=== PATIENT | female | born 1990 | race Caucasian/White ===

== ENCOUNTER 2018-09-05 01:00 | Inpatient (IN) | payer SELFPAY ==
[~2018-09-05] VITALS: Ht 160 cm; Wt 76.9 kg
[2018-09-05] MEDS ORDERED: LIDOCAINE 1% (MPF) 30 ML INJ INJ PRN (18:00)
[2018-09-05] MEDS ORDERED: MISOPROSTOL 200 MCG TAB PR PRN (18:00)
[2018-09-05] MEDS ORDERED: OXYTOCIN 30 UNITS/LR 500 ML IV PRN (18:00)
[2018-09-05] MEDS ORDERED: METHYLERGONOVINE 0.2 MG INJ IM PRN (18:00)
[2018-09-05] MEDS ORDERED: CARBOPROST 250 MCG INJ IM PRN (18:00)
[2018-09-05] MEDS ORDERED: OXYTOCIN 30 UNITS/LR 500 ML IV SCH ×2 (18:00)
[2018-09-05] MEDS ORDERED: IBUPROFEN 600 MG TAB PO PRN (18:00)
[2018-09-05 18:02] VITALS: Ht 160 cm; Wt 76.9 kg
--- NOTE | 2018-09-05 20:45 | HP ---
Date/Time of Note Date/Time of Note DATE: 09/05/18 TIME: 20:43 OB - History Hx of Present Free Text/Dictation 09/05/2018 Estimated Due Date: Sep 12, 2018 : 2 Para: 1 Spontaneous : 0 Therapeutic : 0 Care: Good Care Obstetrical Complications: None Medical Complications: None Other Concerns: 27 years old with IUP at 39 weeks desires to proceed with labor induction due to living far from [facility]. Requested delivery at . Antepartum course was non complicated. GBS negative Final LEE: 09/12/2018 History of post date in first , Difficult delivery, 26 hours labor Desires to be induced at 39 weeks. Lives now very far from [place]. Declined all genetic testing. Does not consider termination in any cases. Past Family/Social History * Past Medical, Surgical, Family and Obstetric Histories reviewed from chart. Blood Type: A+ Rubella: immune RPR/VDRL: Negative GBS Status: Negative HBsAG: Negative OB Admission Exam Physical Exam HEENT: WNL Abdomen: WNL Cervical Dilatation: Fingertip Effacement: 25% Station: -2 Membranes: Intact Heart Rate: 130's Accelerations: Accelerations Present Varibility: Moderate Contractions on Admission: 6-10 Minutes Apart Intensity: Mild Last 72 hours Lab Results PROCEDURE: US OB. CLINICAL INDICATION: Labor induction TECHNIQUE: Multiple sonographic images of the pelvis and gravid uterus were obtained. The images were reviewed on a PACS workstation. COMPARISON: US PELVIS 08/21/2018 FINDINGS: Gestation: Single intrauterine gestation. Cardiac activity: 148 bpm. Presentation: Vertex. Placenta: Location: Anterior. Appearance: No previa or abruption. Measurements: BPD = 9.43 cm, 38 weeks 3 days HC = 34.18 cm, 39 weeks 3 days AC = 35.69 cm, 39 weeks 4 days FL = 7.67 cm, 39 weeks 2 days Gestational age: AUA estimated gestational age: 39 weeks 1 day LMP estimated gestational age: 39 weeks 0 days AUA estimated date of delivery: 09/11/2018 EFW = 3758 g, 77 %ile based on LMP age. IMPRESSION: 1. Single live intrauterine gestation of 39 weeks 1 day by ultrasound criteria. 2. Estimated date of delivery of 09/11/2018. OB Assessment/Plan Other Assessment: IUP at 39 weeks Desires labor induction EFW: 77 % Unfavourabnle cervix, Discussed about all the modes of induction. Desires Cytotec. ANAYA MOHAMUD MD Sep 05, 2018 20:45
[2018-09-05] MEDS: LACTATED RINGER'S 1,000 ML IV SCH (21:22)
[2018-09-05] MEDS: MISOPROSTOL 50 MCG CAPSULE PO SCH (22:09)
[2018-09-06] MEDS: LACTATED RINGER'S 1,000 ML IV SCH ×6 (01:31→18:05)
[2018-09-06] MEDS: MISOPROSTOL 50 MCG CAPSULE PO SCH ×6 (02:15→23:02)
[2018-09-06] MEDS: BUTORPHANOL 2 MG INJ IV PRN ×5 (11:58→15:39)
--- NOTE | 2018-09-06 16:50 | PREAC ---
Date/Time of Note Date/Time of Note DATE: 09/06/18 TIME: 16:49 Anesthesia Eval and Record Evaluation Time Pre-Procedure Interview DATE: 09/06/18 TIME: 16:49 Age 27 Sex female NPO: 8 hrs Preoperative diagnosis intrauterine Planned procedure labor epidural Past Medical History Past Medical History: Includes : : (2), Para: (1), Gestational age: (39.1) Surgery & Anesthesia Issues No known issue Meds Anticoagulation: No Beta Kadeem within 24 hr: No Reason Beta Kadeem not given: Pt. not on B-Kadeem No Active Prescriptions or Reported Meds Current Medications Lactated Ringer's 1,000 ml @ 125 mls/hr Q8H IV Last administered on 09/06/18at 15:25; Admin Dose 125 MLS/HR; Start 09/05/18 at 17:31 Butorphanol Tartrate (Stadol) 2 mg Q2H PRN IV .PAIN Last administered on 09/06/18at 15:39; Admin Dose 2 MG; Start 09/05/18 at 18:00 Lidocaine (Xylocaine 1% (Mpf)) 30 ml ONCE PRN INJ .EPISIOTOMY; Start 09/05/18 at 18:00 Oxytocin/Lactated Ringer's 500 ml @ 500 mls/hr ONCE POST IV ; Start 09/05/18 at 18:00 Oxytocin/Lactated Ringer's 500 ml @ 125 mls/hr POST IV ; Start 09/05/18 at 18:00 Ibuprofen (Motrin) 600 mg ONCE PRN PO .PAIN 1-5; Start 09/05/18 at 18:00 Oxytocin/Lactated Ringer's 500 ml @ 0 mls/hr ONCE PRN IV .VAGINAL BLEEDING; Start 09/05/18 at 18:00 Methylergonovine Maleate (Methergine) 0.2 mg ONCE PRN IM .VAGINAL BLEEDING; Start 09/05/18 at 18:00 Carboprost Tromethamine (Hemabate) 250 mcg ONCE PRN IM .VAGINAL BLEEDING; Start 09/05/18 at 18:00 Misoprostol (Cytotec) 1,000 mcg ONCE PRN CA .VAGINAL BLEEDING; Start 09/05/18 at 18:00 Misoprostol (Cytotec 50 Mcg Capsule) 50 mcg Q4H PO Last administered on 09/06/18at 15:20; Admin Dose 50 MCG; Start 09/05/18 at 22:00; Stop 09/06/18 at 22:00 Meds reviewed: Yes Allergies Uncoded Allergies: excedrin (Allergy, Intermediate, throat itchng, 08/21/18) Allergies Reviewed: Yes Labs/Studies Labs Reviewed: Reviewed by anesthesiologist Result Diagram: 09/05/182056 Laboratory Tests 09/05/18 20:57 Blood Bank Test 09/05/18 20:57 Antibody Screen NEGATIVE Blood Type A POSITIVE Rh Immune Globulin Candidate NO test: N/A Pre-procedure Exam Airway: Adequate mouth opening, Adequate thyromental dist Mallampati: Mallampati II Teeth: Normal Lung: Normal Heart: Normal ASA Physical Status ASA physical status: 2 Emergency: None Planned Anesthetic Neuraxial: Epidural Planned Pain Management Epidural, Parenteral pain med Pre-operative Attestations Prior to commencing anesthesia and surgery, the patient was re-evaluated, there was verification of: *The patient's identity *The results of appropriate recent lab work and preoperative vital signs *The above evaluation not changing prior to induction *Anesthetic plan, risk benefits, alternative and complications discussed with patient/family; questions answered; patient/family understands, accepts and wishes to proceed. SHO ALCARAZ MD Sep 06, 2018 16:50
[2018-09-06] MEDS ORDERED: FENTAnyl 2MCG/ML-ROPIV 0.2% 100 ML ONE (16:56)
[2018-09-06] MEDS ORDERED: ONDANSETRON 4 MG INJ IV PRN (17:00)
[2018-09-06] MEDS ORDERED: DIPHENHYDRAMINE 50 MG INJ IV PRN (17:00)
[2018-09-06] MEDS ORDERED: NALOXONE (0.4 MG/ML) INJ IV PRN (17:00)
[2018-09-06] MEDS ORDERED: FENTAnyl 2MCG/ML-ROPIV 0.2% 100 ML BAG EPI SCH (17:00)
--- NOTE | 2018-09-06 18:20 | PAC ---
Date/Time of Note Date/Time of Note DATE: 09/06/18 TIME: 18:19 Post-Anesthesia Notes Post-Anesthesia Note Activity: WNL Respiratory function: WNL Cardiovascular function: WNL Mental status: Baseline Pain reasonably controlled: Yes Hydration appropriate: Yes Nausea/Vomiting absent: Yes Comments BP: 107/62 HR: 65 RR: 16 T: 98 SaO2: 99% SHO ALCARAZ MD Sep 06, 2018 18:20
[2018-09-06] MEDS ORDERED: OXYTOCIN 30 UNITS/LR 500 ML IV SCH (23:30)
[2018-09-07] MEDS ORDERED: AMPICILLIN 2 GM/NS (PMX) 100 ML ONE (00:10)
[2018-09-07] MEDS ORDERED: MINERAL OIL LIGHT 10 ML VIAL ONE (00:13)
[2018-09-07] MEDS ORDERED: AMPICILLIN 2 GM/NS (PMX) 100 ML IV ONE (00:30)
--- NOTE | 2018-09-07 00:36 | PN ---
Date/Time of Note Date/Time of Note DATE: 09/07/18 TIME: 00:32 OB Subjective Subjective Subjective S/p AROM at 18;00 after 3 doses of cytotec. Recervied Epidural Pain well controlled. OB Objective Objective Objective NST. Cat 1. increased base line noted with prolonged accelerations,. No maternal fever or maternal tachycardia FHT base line: 160s. good variability SVE: 9.90/ 0-+! OB Assessment/Plan Reason for admission: active labor Other Assessment: S/p induction at 39 weeks S/p cervical ripening with cytotec s/p AROM. 6 hours ago GBs negative tachycardia, Good variability. No maternal fever, Started Ampicillin, Anticipate ANAYA MOHAMUD MD Sep 07, 2018 00:36
[2018-09-07] MEDS ORDERED: MINERAL OIL LIGHT 10 ML VIAL TOP ONE (01:00)
[2018-09-07] MEDS ORDERED: OXYTOCIN 30 UNITS/LR 500 ML IV SCH (01:31)
--- NOTE | 2018-09-07 01:31 | LDN ---
Date/Time of Note Date/Time of Note DATE: 09/07/18 TIME: 01:27 Delivery Summary 09/07/2018 tachycardia intrapartum noted. No maternal tachycardia or fever. Received one dose of Ampicillin Baby was noted to had elevated T immediately after resiolved Placenta delivered intact and complete and sent to Pathology fundus was firm at the end of the delivery. Second degree perineal laceration noted and repaired using 3-0 chromic Hemostasis was complete at the end of the delivery Gauze count, needle count correct x 2 EBL 200 cc Weeks of Gestation 39 weeks Placenta Delivered: Spontaneously Meconium: none Episiotomy: No Indication for episiotomy N.A Perineal laceration: 2 Laceration repair: second degree perineal laceration repaired using 2-0 and 3-0 chromic Anesthesia type: Epidural Estimated blood loss: 200 Sponge & Needle done & correct: Yes All needle counts correct: Yes Any foreign bodies felt in the: No Delivery Information Sex Sex: male Apgars 1 Minute: 8 5 Minute: 9 Suctioning Nose & mouth suctioned at alexia: Yes Delee suction performed: Yes Umbilical Cord Umbilical cord with: 3 Vessels Cord presentations: no nuchal cord Cord Blood was obtained: Yes ANAYA MOHAMUD MD Sep 07, 2018 01:31
[2018-09-07] MEDS ORDERED: METHYLERGONOVINE 0.2 MG INJ IM PRN (02:00)
[2018-09-07] MEDS ORDERED: LANOLIN HPA 1 PKT TOP PRN (02:00)
[2018-09-07] MEDS ORDERED: CARBOPROST 250 MCG INJ IM PRN (02:00)
[2018-09-07] MEDS ORDERED: WITCH HAZEL/GLYCERIN PAD PR PRN (02:00)
[2018-09-07] MEDS ORDERED: NACL 0.9% 3 ML SYG IV SCH (02:00)
[2018-09-07] MEDS ORDERED: OXYTOCIN 30 UNITS/LR 500 ML IV PRN (02:00)
[2018-09-07] MEDS ORDERED: ONDANSETRON 4 MG INJ IV PRN (02:00)
[2018-09-07] MEDS ORDERED: METHYLERGONOVINE 0.2 MG TAB PO PRN (02:00)
[2018-09-07] MEDS: SENNA/DOCUSATE NA (8.6MG/50MG) TAB PO SCH ×3 (02:00→21:00)
[2018-09-07] MEDS ORDERED: ACETAMINOPHEN 325 MG TAB PO PRN (02:00)
[2018-09-07] MEDS ORDERED: MISOPROSTOL 200 MCG TAB PR PRN (02:00)
[2018-09-07] MEDS ORDERED: DIPHENHYDRAMINE 25 MG CAP PO PRN (02:00)
[2018-09-07] MEDS ORDERED: HYDROCODONE/APAP (5/325) TAB PO PRN (02:00)
[2018-09-07] MEDS ORDERED: ZOLPIDEM 5 MG TAB PO PRN (02:00)
[2018-09-07 02:45] VITALS: BP 115/57; PULSE 70; RESP 18
[2018-09-07] MEDS: IBUPROFEN 600 MG TAB PO SCH ×4 (02:57→17:40)
[2018-09-07 04:30] VITALS: BP 112/56; PULSE 82; RESP 18
[2018-09-07 08:00] VITALS: BP 108/51; PULSE 80; RESP 20
--- NOTE | 2018-09-07 08:24 | PN ---
Date/Time of Note Date/Time of Note DATE: 09/07/18 TIME: 08:16 OB Subjective Subjective Subjective Ambulated. Breast feeding. Denies any complaint, Denies any fever, chills. Baby at the bed side OB Objective Objective Objective GA: A &O, NAD Abdomen: Soft, Fundus firm and non tender. Extremities: No calf tenderness, no click, no edema Breasts: no evidence of mastitis or fissure VS - Last 72 Hours, by Label Date Temp Pulse Resp B/P (MAP) Pulse Ox O2 O2 Flow FiO2 Time Delivery Rate 09/07/18 98.9 82 18 112/56 Room Air 04:30 (74) 09/07/18 97.9 70 18 115/57 Room Air 02:45 (76) Laboratory Tests Test 09/05/18 20:57 White Blood Count 10.2 10^3/ul Red Blood Count 3.95 10^6/ul Hemoglobin 11.2 g/dl Hematocrit 34.5 % Mean Corpuscular Volume 87.3 fl Mean Corpuscular Hemoglobin 28.4 pg Mean Corpuscular Hemoglobin Concent 32.5 g/dl Red Cell Distribution Width 13.8 % Platelet Count 178 10^3/UL Mean Platelet Volume 10.3 fl Immature Granulocytes % 2.600 % Neutrophils % 66.4 % Lymphocytes % 20.2 % Monocytes % 9.7 % Eosinophils % 0.5 % Basophils % 0.6 % Nucleated Red Blood Cells % 0.0 /100WBC Immature Granulocytes # 0.260 10^3/ul Neutrophils # 6.8 10^3/ul Lymphocytes # 2.1 10^3/ul Monocytes # 1.0 10^3/ul Eosinophils # 0.1 10^3/ul Basophils # 0.1 10^3/ul Nucleated Red Blood Cells # 0.0 10^3/ul Prothrombin Time 11.7 Sec Prothrombin Time Ratio 0.9 INR International Normalized Ratio 0.85 Activated Partial Thromboplast Time 23.2 Sec Hemoglobin A1c 5.3 % Rapid Plasma Reagin NONREACTIVE Hepatitis B Surface Antigen NEGATIVE OB Assessment/Plan Other Assessment: s/p S/p induction at 39 weeks Doing well Continue routine post care Anticipate DC home tomorrow Follow up at 6 weeks post with the office or sooner ANAYA KIM MD Sep 07, 2018 08:24
--- NOTE | 2018-09-07 08:25 | PD.PPDC ---
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
--- NOTE | 2018-09-07 08:29 | DS ---
Date/Time of Note Date/Time of Note DATE: 09/07/18 TIME: 08:25 Discharge Summary Admission/Discharge Info Admit Date/Time Sep 05, 2018 at 17:22 Discharge Date/Time Discharge Diagnosis s/p Patient Condition: Good Consults N/A Procedures Induction at 39 weeks Hx of Present Illness 27 years old with IUP at 39 weeks , underwent induction of labor at 39 weeks. intrapartum course was complicated by tachycardia without any fever. Baby had one time elevated T post , resolved immediately Patient did not have any risk factor for chorioamnionitis and clinical picture did not meet the criteria for choio,. She received one dose of ampicillin at the second stage of labor when had tachycardia. Baby did well post , On PPD #2, Patient was noted to be stable enough for discharge. She was ambulating, breast feedign, vitals were stable, Afebrile, baby did well Advised to have a follow up at 6 weeks post with the office or sooner PRn Hospital Course Non complicated Transient tachycardia intrapartum just prior to delivery without any evidence of chorioamnionitis or infection, resolved Home Meds Active Scripts Ibuprofen* (Ibuprofen*) 600 Mg Tablet, 600 MG PO Q6 for 20 Days, #60 TAB 2 Refills Prov:ANAYA MOHAMUD MD 09/08/18 Witch Tonya* (Tucks* Pads) 40 Pad Pad, 1 PAD [place] BEDSIDE MEDICATION PRN for .HEMORRHOID/EPISIOTOMY PAIN for 10 Days, #3 PAD 3 Refills Prov:ANAYA MOHAMUD MD 09/08/18 [Lanolin Hpa] 1 APPLIC OINT No Conflict Check, 1 APPLIC TOP BEDSIDE MEDICATION PRN for .NIPPLES, #3 3 Refills Prov:ANAYA MOHAMUD MD 09/08/18 Primary Care Provider Care Physician No Primary Time spent on discharge: > 30 minutes ANAYA MOHAMUD MD Sep 07, 2018 08:29
[2018-09-07 12:00] VITALS: BP 98/60; PULSE 72; RESP 20
[2018-09-07 16:00] VITALS: BP 111/60; PULSE 74; RESP 20
[2018-09-08] MEDS: IBUPROFEN 600 MG TAB PO SCH ×4 (00:19→17:07)
[2018-09-08 04:00] VITALS: BP 114/60; PULSE 70; RESP 20
[2018-09-08 08:45] VITALS: BP 107/69; PULSE 77; RESP 16
[2018-09-08] MEDS: SENNA/DOCUSATE NA (8.6MG/50MG) TAB PO SCH (09:00)
--- NOTE | 2018-09-08 11:40 | PN ---
Date/Time of Note Date/Time of Note DATE: 09/08/18 TIME: 11:36 OB Subjective Subjective Subjective Denies any complaint, Happy . Breast feeding. Thinks this delivery was much e asier that prior one. Reports perineal swelling came down significantly as well as her body swelling. Bleeding significantly less. OB Objective Objective Objective Appearance: Alert and oriented x4 does not appear to be in any acute distress abdomen: Soft, fundus firm and palpable Below the umbilicus and nontender Extremities: No calf tenderness, no click no edema no cord palpable breast: No evidence of mastitis or fissure Laboratory Tests Test 09/07/18 12:40 09/08/18 05:49 09/08/18 06:48 Hemoglobin 10.4 g/dl 10.9 g/dl Hematocrit 32.5 % 33.9 % Lab Scanned Report REFERENCE LAB [id number] White Blood Count 16.6 10^3/ul Red Blood Count 3.83 10^6/ul Mean Corpuscular Volume 88.5 fl Mean Corpuscular 28.5 pg Hemoglobin Mean Corpuscular 32.2 g/dl Hemoglobin Concent Red Cell Distribution 14.2 % Width Platelet Count 152 10^3/UL Mean Platelet Volume 10.2 fl Immature Granulocytes % 1.900 % Neutrophils % 68.9 % Lymphocytes % 19.3 % Monocytes % 8.1 % Eosinophils % 1.0 % Basophils % 0.8 % Nucleated Red Blood Cells 0.0 /100WBC % Immature Granulocytes # 0.320 10^3/ul Neutrophils # 11.5 10^3/ul Lymphocytes # 3.2 10^3/ul Monocytes # 1.3 10^3/ul Eosinophils # 0.2 10^3/ul Basophils # 0.1 10^3/ul Nucleated Red Blood Cells 0.0 10^3/ul # OB Assessment/Plan Other Assessment: s/p Post #2 Doing well DC home Follow up at 6 weeks post with the office to ANAYA Thorpe MD Sep 08, 2018 11:40
[2018-09-08] MEDS ORDERED: Lanolin Hpa TOP (11:43)
[2018-09-08] MEDS ORDERED: TUCKS PR (11:43)
[2018-09-08] MEDS ORDERED: IBUP-1542 PO (11:43)
[2018-09-09] MEDS ORDERED: VARICELLA VACCINE LIVE/PF 1,350 UNIT/0.5 ML ML SC* ONE (09:00)
[2018-09-09] MEDS ORDERED: MEASLES,MUMPS,RUBELLA VACCINE INJ SC* ONE (09:00)
[2018-09-09] MEDS ORDERED: DIPHTH/TET/ACEL PERTUSS (ADULT) 0.5 ML VIAL IM* ONE (09:00)
== END 2018-09-08 18:30 | disposition home or self-care (01) | DRG 807 ==
LOC: L-D 17:22 → PP1 09-07 02:45
PROVIDERS: ADMIT Obstetrics & Gynecology Obstetrics; ATTEND Obstetrics & Gynecology Obstetrics
PROC: 3E033VJ Introduction of Other Hormone into Peripheral Vein, Percutaneous Approach (ICD-10-PCS; 2018-09-05)
PROC: 10E0XZZ Delivery of Products of Conception, External Approach (ICD-10-PCS; principal; 2018-09-07)
PROC: 0KQM0ZZ Repair Perineum Muscle, Open Approach (ICD-10-PCS; 2018-09-07)
PROC: 10907ZC Drainage of Amniotic Fluid, Therapeutic from Products of Conception, Via Natural or Artificial Opening (ICD-10-PCS; 2018-09-08)
DX: O34.43 Maternal care for other abnormalities of cervix, third trimester (principal); O76 Abnormality in fetal heart rate and rhythm complicating labor and delivery; O70.1 Second degree perineal laceration during delivery; Z37.0 Single live birth; Z3A.39 39 weeks gestation of pregnancy
CPT/HCPCS: 62319; 76815; 83036; 85014; 85018; 85025; 85610; 85730; 86592; 86850; 86900; 86901; 87340; 99464; J0290; J0595; J2590; J3010; J7120